=== PATIENT | female | born 1980 | race African-American/Black ===

== ENCOUNTER → 2017-01-29 | Day surgery (SDC) | payer OTHER ==
[~2017-01-29] VITALS: Ht 170.2 cm; Wt 78.5 kg
[~2017-01-29] MED LIST: FERROUS SULFAT325 M3 PO; XANAX1 M1 PO
--- NOTE | 2017-01-29 10:43 | Operative Report ---
Operative/Inv Procedure Report Surgery Date: 01/29/17 Name of Procedure: dnc cryroablation of uterus Pre-Operative Diagnosis: Metromenorrhagia Post-Operative Diagnosis: Same Estimated Blood Loss: scant Surgeon/Front Counter Attendant: KHUSHBOO POMPA,POLO Borjas Anesthesia: moderate sedation Operative/Procedure Note Note: Procedure note patient was taken the operating room placed supine position after adequate induction of anesthesia via T the patient was placed in dorsolithotomy position the vagina from dorsal fashion bladder was catheterized with Helms examination under anesthesia performed this point, a speculum was placed into the vagina single-tooth tenaculum was placed 12:00 conservative spelled traction cervix was dilated with Hegar to allow insertion of the sharp curet sharp curettage of the endometrial lining performed sharp curettage and cervical and swollen to specimen sent to pathology I this point under the bladder was catheterized with approximately 250 mL normal saline the cryoprobe was placed into the uterus under ultrasound guidance approximately 8 minutes on each side ice ball was developed cryoprobe was heated and removed wants was removed from the vagina and the patient was returned spine position awakened from anesthesia and transferred recovery room awake alert counts correct Findings: Normal size uterus normal ovaries bilaterally normal lining
--- NOTE | 2017-01-30 17:38 | ULTRASOUND REPORT ---
EXAMINATION: US INTRAOPERATIVE CLINICAL INFORMATION: Menometrorrhagia. Cryoablation. COMPARISON: None TECHNIQUE: 9 sonographic images were obtained at the time of the procedure. FINDINGS: The uterus is visualized. There is a hypoechogenicity identified within the endometrial cavity likely represent cryoablation probe. IMPRESSION: Sonographic images were obtained at the time of the cryoablation. Full procedural details will be dictated by Dr. Harry.
== END ==
LOC: STS 01-15 07:00
DX: N92.1 Excessive and frequent menstruation with irregular cycle (principal); N72 Inflammatory disease of cervix uteri; D64.9 Anemia, unspecified
CPT/HCPCS: 76998; 81025; 88305; J0131